=== PATIENT | female | born 1985 | race American Indian/Alaskan Native ===

== ENCOUNTER 2018-05-24 14:49 | Inpatient (IN) | payer MEDICAID, OTHER ==
[2018-05-24] MEDS ORDERED: ASPIRIN PO ONE (15:09)
[2018-05-24 15:26] LABS: Basophils % (Auto) 0.5 % (0.0-1.8); Eosinophils % (Auto) 0.5 % (0.0-4.3); Hematocrit 37.3 % (30.3-42.9); Hemoglobin 12.1 gm/dl (10.1-14.3); Lymphocytes # (Auto) 2.1 K/mm3 (1.2-5.4); Lymphocytes % (Auto) 38.2 % (13.4-35.0); Mean Corpuscular HGB Conc 33 % (30-34); Mean Corpuscular Hemoglobin 26 pg (28-32); Mean Corpuscular Volume 81 fl (79-97); Monocytes # (Auto) 0.4 K/mm3 (0.0-0.8); Monocytes % (Auto) 7.3 % (0.0-7.3); Platelet Count 263 K/mm3 (140-440); Red Cell Distribution Width 15.8 % (13.2-15.2)
[2018-05-24 15:42] LABS: BUN/Creatinine Ratio 9; Blood Urea Nitrogen 7 mg/dL (7-17); Calcium 9.2 mg/dL (8.4-10.2); Hemolysis Index 3
[2018-05-24 16:04] LABS: INR 0.96 (0.87-1.13)
[2018-05-24] MEDS ORDERED: ZOFRAN IV ONE ×2 (17:36→21:06)
[2018-05-24] MEDS ORDERED: MORPHINE IV ONE (17:36)
[2018-05-24] MEDS ORDERED: NITRO-BID 2% TP ONE (17:36)
--- NOTE | 2018-05-24 17:44 | Emergency Department Report ---
HPI - General Chief Complaint: Chest Pain Time Seen by Provider: 05/24/18 17:34 - HPI HPI: Room 31 The patient is a 32-year-old female presenting with chief complaint of chest pain. Patient states her symptoms began last night with substernal chest tightness that waxes and wanes. Patient states the tightness is associated with shortness of breath but denies nausea/vomiting or diaphoresis. Patient admits to pleurisy and dizziness. Patient states the fingers on both hands became numb as well. Patient currently gives her pain a score of 8/10. The patient states she has a history of Ianyh-Oezyeokjr-Yckpc but has never had a stress test or cardiac catheterization Location: Chest Duration: Constant since last night Quality: Tightness Severity: 8/10 Modifying factors: [see above] Context: [see above] Mode of transportation: [not driving] ED Past Medical Hx - Past Medical History Additional medical history: Rgexs-Mxpwrufnz-Piwqj - Surgical History Additional Surgical History: D&C - Family History Family history: no significant - Social History Smoking Status: Never Smoker Substance Use Type: None (denies illicit drug use) - Medications Home Medications: Home Medications Medication Instructions Recorded Confirmed Last Taken Type Promethazine Dm (Nf) [Phenergan Dm 5 ml PO Q6H PRN #60 ml 09/09/14 Unknown Rx 6.25/15 mg 5 ml] Ondansetron [Zofran Odt] 4 mg PO Q8HR #12 tab.rapdis 12/26/15 Unknown Rx ED Review of Systems ROS: Stated complaint: CHEST PAIN Other details as noted in HPI Constitutional: denies: diaphoresis Eyes: denies: eye pain ENT: denies: throat pain Respiratory: shortness of breath Cardiovascular: chest pain Endocrine: no symptoms reported Gastrointestinal: denies: nausea, vomiting Genitourinary: denies: dysuria Musculoskeletal: denies: back pain Neurological: paresthesias Physical Exam - Physical Exam Vital Signs: Vital Signs 05/24/18 15:03 Temperature 98.5 F Pulse Rate 103 H Respiratory 24 Rate Blood Pressure 139/83 O2 Sat by Pulse 100 Oximetry Physical Exam: GENERAL: The patient is well-developed well-nourished female sitting in chair appearing to be in mild discomfort. [] HEENT: Normocephalic. Atraumatic. Extraocular motions are intact. Patient has moist mucous membranes. NECK: Supple. Trachea midline CHEST/LUNGS: Clear to auscultation. There is no respiratory distress noted. HEART/CARDIOVASCULAR: Regular. There is no tachycardia. There is no gallop rub or murmur. ABDOMEN: Abdomen is soft, nontender. Patient has normal bowel sounds. There is no abdominal distention. SKIN: There is no rash. There is no edema. There is no diaphoresis. NEURO: The patient is awake, alert, and oriented. The patient is cooperative. The patient has normal speech MUSCULOSKELETAL: There is no evidence of acute injury. ED Course Vital Signs 05/24/18 15:03 Temperature 98.5 F Pulse Rate 103 H Respiratory 24 Rate Blood Pressure 139/83 O2 Sat by Pulse 100 Oximetry ED Medical Decision Making - Lab Data Result diagrams: 05/24/18 15:12 05/24/18 15:12 Laboratory Tests 05/24/18 05/24/18 05/24/18 15:12 15:12 15:39 WBC 5.5 RBC 4.60 Hgb 12.1 Hct 37.3 MCV 81 MCH 26 L MCHC 33 RDW 15.8 H Plt Count 263 Lymph % (Auto) 38.2 H [place] % (Auto) 7.3 Eos % (Auto) 0.5 Baso % (Auto) 0.5 Lymph # 2.1 [place] # 0.4 Eos # 0.0 Baso # 0.0 Seg Neutrophils % 53.5 Seg Neutrophils # 3.0 PT INR D-Dimer Sodium 135 L Potassium 3.7 Chloride 100.0 Carbon Dioxide 22 Anion Gap 17 BUN 7 Creatinine 0.8 Estimated GFR > 60 BUN/Creatinine Ratio 9 Glucose 92 Calcium 9.2 Troponin T < 0.010 HCG, Qual Negative 05/24/18 05/24/18 05/24/18 15:39 15:39 17:39 WBC RBC Hgb Hct MCV MCH MCHC RDW Plt Count Lymph % (Auto) [place] % (Auto) Eos % (Auto) Baso % (Auto) Lymph # [place] # Eos # Baso # Seg Neutrophils % Seg Neutrophils # PT 13.3 INR 0.96 D-Dimer 362.13 H Sodium Potassium Chloride Carbon Dioxide Anion Gap BUN Creatinine Estimated GFR BUN/Creatinine Ratio Glucose Calcium Troponin T < 0.010 HCG, Qual 05/24/18 20:46 WBC RBC Hgb Hct MCV MCH MCHC RDW Plt Count Lymph % (Auto) [place] % (Auto) Eos % (Auto) Baso % (Auto) Lymph # [place] # Eos # Baso # Seg Neutrophils % Seg Neutrophils # PT INR D-Dimer Sodium Potassium Chloride Carbon Dioxide Anion Gap BUN Creatinine Estimated GFR BUN/Creatinine Ratio Glucose Calcium Troponin T < 0.010 HCG, Qual - EKG Data -: EKG Interpreted by Me EKG shows normal: sinus rhythm Rate: normal - EKG Data When compared to previous EKG there are: no significant change Interpretation: unchanged when compared t (03/15/2010) - Radiology Data Radiology results: report reviewed (CT chest), image reviewed (CT chest) CT chest (read by radiologist)-no PE - Differential Diagnosis ACS, PE, pericarditis, GERD Critical care attestation.: If time is entered above; I have spent that time in minutes in the direct care of this critically ill patient, excluding procedure time. ED Disposition Clinical Impression: Chest pain Disposition: DC-09 OP ADMIT IP TO THIS HOSP Is pt being admited?: Yes Does the pt Need Aspirin: Yes Condition: Fair Instructions: Chest Pain (ED) Referrals: PRIMARY CARE, [Primary Care Provider] - 3-5 Days Time of Disposition: 21:57 (hospitalist paged (Dr. Felicitas Rivera))
[2018-05-24] MEDS ORDERED: DILAUDID IV ONE (21:16)
--- NOTE | 2018-05-24 21:32 | Cat Scan Report ---
FINAL REPORT EXAM: CT ANGIO CHEST HISTORY: chest pain, pleurisy TECHNIQUE: Following administration of IV contrast axial helical imaging was performed through the chest with sagittal and coronal reformatted images and maximum intensity projection images obtained. Comparison: None FINDINGS: There is no evidence of infiltrate, pneumothorax or pleural fluid collection. The trachea and bronchi are patent. The heart appears to be normal size. The thoracic aorta is normal caliber. There is no evidence of dissection. No filling defects are demonstrated within the pulmonary arteries to suggest the presence of pulmonary artery emboli. There is no evidence of intrathoracic adenopathy. The visualized portion the upper abdomen is unremarkable. The bony structures are unremarkable in appearance. IMPRESSION: 1. No evidence of an acute intrathoracic process. 2. No evidence of pulmonary artery emboli.
[2018-05-24] MEDS ORDERED: MORPHINE IV PRN ×2 (22:53→22:55)
[2018-05-24] MEDS ORDERED: SODIUM CHLORIDE FLUSH SYRINGE 10 ML IV PRN ×2 (22:55)
[2018-05-24] MEDS ORDERED: TYLENOL PO PRN (22:55)
[2018-05-24] MEDS ORDERED: ZOFRAN IV PRN (22:55)
--- NOTE | 2018-05-24 23:13 | History and Physical Report ---
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 Pt states that the chest pain started last night while she was in bed, pt state that the pain was noticeable but not too intense. Pt states that the pain restarted again today, it was a pressure-like pain that is constant but at time increase in intensity. Pt states that the pain was so intense that she called EMS, EMS was delayed and she called her mother who take her to the ER. Pt denied similar chest pain, she reports a h/o WPW syndrome with chest pain and palpitation, but states that this pain is different in that it is located more on the right side, reproducible with chest palpation, it is associated with SOB and it is worse with deep breath. In the ER, pt has a CT angiogram that was negative for PE, her EKG was negative, her first cardiac enzyme is negative and her chest xray is negative. Past History Past Medical History: migraines, other (WPW syndrome) Past Surgical History: No surgical history Social history: , lives with family, other (denies smoking ) Family history: no significant family history Medications and Allergies Allergies Allergy/AdvReac Type Severity Reaction Status Date / Time No Known Allergies Allergy Verified 09/09/14 18:44 Home Medications Medication Instructions Recorded Confirmed Last Taken Type Promethazine Dm (Nf) [Phenergan Dm 5 ml PO Q6H PRN #60 ml 09/09/14 Unknown Rx 6.25/15 mg 5 ml] Ondansetron [Zofran Odt] 4 mg PO Q8HR #12 tab.rapdis 12/26/15 Unknown Rx Active Meds: Active Medications Acetaminophen (Tylenol) 650 mg PO Q4H PRN PRN Reason: Pain MILD(1-3)/Fever >100.5/SPARKS Enoxaparin Sodium (Lovenox) 30 mg SUB-Q QDAY AWILDA Morphine Sulfate (Morphine) 2 mg IV Q4H PRN PRN Reason: Pain, Moderate (4-6) Morphine Sulfate (Morphine) 2 mg IV Q4H PRN PRN Reason: Pain, Moderate (4-6) Ondansetron HCl (Zofran) 4 mg IV Q4H PRN PRN Reason: Nausea And Vomiting Sodium Chloride (Sodium Chloride Flush Syringe 10 Ml) 10 ml IV BID AWILDA Sodium Chloride (Sodium Chloride Flush Syringe 10 Ml) 10 ml IV PRN PRN PRN Reason: LINE FLUSH Sodium Chloride (Sodium Chloride Flush Syringe 10 Ml) 10 ml IV PRN PRN PRN Reason: LINE FLUSH Review of Systems Cardiovascular: chest pain, shortness of breath Respiratory: shortness of breath Neurological: headaches, migraines, other (dizziness) Exam - Physical Exam Narrative exam: Pt is awake is bed, able to provide medical history - Constitutional Vitals: Temp Pulse Resp BP Pulse Ox 98.5 F 86 20 115/74 99 05/24/18 15:03 05/24/18 19:31 05/24/18 19:31 05/24/18 19:31 05/24/18 19:31 General appearance: Present: mild distress - EENT Eyes: Present: EOM intact - Neck Neck: Present: normal ROM - Respiratory Respiratory effort: normal Respiratory: bilateral: CTA - Cardiovascular Rhythm: regular - Extremities Extremities: pulses symmetrical, No edema, normal color Peripheral Pulses: within normal limits - Rectal Rectal Exam: deferred - Integumentary Integumentary: Present: warm, dry - Musculoskeletal Musculoskeletal: strength equal bilaterally - Psychiatric Psychiatric: appropriate mood/affect - Neurologic Neurologic: moves all extremities Results - Labs CBC & Chem 7: 05/25/18 00:00 05/25/18 00:00 Labs: Laboratory Last Values WBC 5.5 K/mm3 (4.5-11.0) 05/24/18 15:12 RBC 4.60 M/mm3 (3.65-5.03) 05/24/18 15:12 Hgb 12.1 gm/dl (10.1-14.3) 05/24/18 15:12 Hct 37.3 % (30.3-42.9) 05/24/18 15:12 MCV 81 fl (79-97) 05/24/18 15:12 MCH 26 pg (28-32) L 05/24/18 15:12 MCHC 33 % (30-34) 05/24/18 15:12 RDW 15.8 % (13.2-15.2) H 05/24/18 15:12 Plt Count 263 K/mm3 (140-440) 05/24/18 15:12 Lymph % (Auto) 38.2 % (13.4-35.0) H 05/24/18 15:12 [place] % (Auto) 7.3 % (0.0-7.3) 05/24/18 15:12 Eos % (Auto) 0.5 % (0.0-4.3) 05/24/18 15:12 Baso % (Auto) 0.5 % (0.0-1.8) 05/24/18 15:12 Lymph # 2.1 K/mm3 (1.2-5.4) 05/24/18 15:12 [place] # 0.4 K/mm3 (0.0-0.8) 05/24/18 15:12 Eos # 0.0 K/mm3 (0.0-0.4) 05/24/18 15:12 Baso # 0.0 K/mm3 (0.0-0.1) 05/24/18 15:12 Seg Neutrophils % 53.5 % (40.0-70.0) 05/24/18 15:12 Seg Neutrophils # 3.0 K/mm3 (1.8-7.7) 05/24/18 15:12 PT 13.3 Sec. (12.2-14.9) 05/24/18 15:39 INR 0.96 (0.87-1.13) 05/24/18 15:39 D-Dimer 362.13 ng/mlDDU (0-234) H 05/24/18 15:39 Sodium 135 mmol/L (137-145) L 05/24/18 15:12 Potassium 3.7 mmol/L (3.6-5.0) 05/24/18 15:12 Chloride 100.0 mmol/L (98-107) 05/24/18 15:12 Carbon Dioxide 22 mmol/L (22-30) 05/24/18 15:12 Anion Gap 17 mmol/L 05/24/18 15:12 BUN 7 mg/dL (7-17) 05/24/18 15:12 Creatinine 0.8 mg/dL (0.7-1.2) 05/24/18 15:12 Estimated GFR > 60 ml/min 05/24/18 15:12 BUN/Creatinine Ratio 9 % 05/24/18 15:12 Glucose 92 mg/dL (65-100) 05/24/18 15:12 Calcium 9.2 mg/dL (8.4-10.2) 05/24/18 15:12 Troponin T < 0.010 ng/mL (0.00-0.029) 05/24/18 20:46 HCG, Qual Negative (Negative) 05/24/18 15:39 Assessment and Plan Assessment and plan: 1. Atypical chest pain 2. H/o WPW syndrome 3. Costochondritis 4. Migraine headaches Plan Admit to [facility] Continue serial CE Monitor heart rate, VS DVT prophylaxis with Lovenox Morphine PRN for chest pain Muscle relaxant with Baclofen Lexicon stress test in am Further plan per hospital course Advance Directives: Yes VTE prophylaxis?: Chemical (Lovenox) Plan of care discussed with patient/family: Yes <NADINE OTOOLE - Last Filed: 05/25/18 06:07> History of Present Illness Date of admission: 05/24/18 22:56 Medications and Allergies Active Meds: Active Medications Acetaminophen (Tylenol) 650 mg PO Q4H PRN PRN Reason: Pain MILD(1-3)/Fever >100.5/SPARKS Enoxaparin Sodium (Lovenox) 40 mg SUB-Q QDAY@1000 AWILDA Morphine Sulfate (Morphine) 2 mg IV Q4H PRN PRN Reason: Pain, Moderate (4-6) Ondansetron HCl (Zofran) 4 mg IV Q4H PRN PRN Reason: Nausea And Vomiting Sodium Chloride (Sodium Chloride Flush Syringe 10 Ml) 10 ml IV BID AWILDA Sodium Chloride (Sodium Chloride Flush Syringe 10 Ml) 10 ml IV PRN PRN PRN Reason: LINE FLUSH Exam - Constitutional Vitals: Temp Pulse Resp BP Pulse Ox 98.5 F 82 17 117/54 98 05/25/18 00:50 05/25/18 00:50 05/25/18 00:50 05/25/18 00:50 05/25/18 00:50 Results - Labs CBC & Chem 7: 05/25/18 05:07 05/25/18 00:00 Labs: Laboratory Last Values WBC 7.2 K/mm3 (4.5-11.0) 10/02/18 00:00 RBC 4.15 M/mm3 (3.65-5.03) 05/25/18 00:00 Hgb 11.3 gm/dl (10.1-14.3) 05/25/18 00:00 Hct 33.7 % (30.3-42.9) 05/25/18 00:00 MCV 81 fl (79-97) 05/25/18 00:00 MCH 27 pg (28-32) L 05/25/18 00:00 MCHC 34 % (30-34) 05/25/18 00:00 RDW 15.8 % (13.2-15.2) H 05/25/18 00:00 Plt Count 252 K/mm3 (140-440) 05/25/18 00:00 Lymph % (Auto) 28.5 % (13.4-35.0) 05/25/18 00:00 [place] % (Auto) 6.8 % (0.0-7.3) 05/25/18 00:00 Eos % (Auto) 0.4 % (0.0-4.3) 05/25/18 00:00 Baso % (Auto) 0.5 % (0.0-1.8) 05/25/18 00:00 Lymph # 2.1 K/mm3 (1.2-5.4) 05/25/18 00:00 [place] # 0.5 K/mm3 (0.0-0.8) 05/25/18 00:00 Eos # 0.0 K/mm3 (0.0-0.4) 05/25/18 00:00 Baso # 0.0 K/mm3 (0.0-0.1) 05/25/18 00:00 Seg Neutrophils % 63.8 % (40.0-70.0) 05/25/18 00:00 Seg Neutrophils # 4.6 K/mm3 (1.8-7.7) 05/25/18 00:00 PT 13.3 Sec. (12.2-14.9) 05/24/18 15:39 INR 0.96 (0.87-1.13) 05/24/18 15:39 D-Dimer 362.13 ng/mlDDU (0-234) H 05/24/18 15:39 Sodium 137 mmol/L (137-145) 05/25/18 00:00 Potassium 3.8 mmol/L (3.6-5.0) 05/25/18 00:00 Chloride 101.6 mmol/L (98-107) 05/25/18 00:00 Carbon Dioxide 24 mmol/L (22-30) 05/25/18 00:00 Anion Gap 15 mmol/L 05/25/18 00:00 BUN 7 mg/dL (7-17) 05/25/18 00:00 Creatinine 0.7 mg/dL (0.7-1.2) 05/25/18 00:00 Estimated GFR > 60 ml/min 05/25/18 00:00 BUN/Creatinine Ratio 10 % 05/25/18 00:00 Glucose 94 mg/dL (65-100) 05/25/18 00:00 Calcium 8.7 mg/dL (8.4-10.2) 05/25/18 00:00 Troponin T < 0.010 ng/mL (0.00-0.029) 05/24/18 20:46 HCG, Qual Negative (Negative) 05/24/18 15:39 Assessment and Plan Assessment and plan: Patient seen and examined with Nurse Practioner. 32 year old woman with a history of WPW is being seen for chest pain on the right side. Her physical exam is benign, vital stable, EKG is in normal sinus rhythm Agree with cardiac enzymes, stress test and plan as outlined above
[2018-05-25 00:19] LABS: Basophils % (Auto) 0.5 % (0.0-1.8); Eosinophils % (Auto) 0.4 % (0.0-4.3); Hematocrit 33.7 % (30.3-42.9); Hemoglobin 11.3 gm/dl (10.1-14.3); Lymphocytes # (Auto) 2.1 K/mm3 (1.2-5.4); Lymphocytes % (Auto) 28.5 % (13.4-35.0); Mean Corpuscular HGB Conc 34 % (30-34); Mean Corpuscular Hemoglobin 27 pg (28-32); Mean Corpuscular Volume 81 fl (79-97); Monocytes # (Auto) 0.5 K/mm3 (0.0-0.8); Monocytes % (Auto) 6.8 % (0.0-7.3); Platelet Count 252 K/mm3 (140-440); Red Blood Count 4.15 M/mm3 (3.65-5.03); Red Cell Distribution Width 15.8 % (13.2-15.2)
[2018-05-25 00:33] LABS: BUN/Creatinine Ratio 10; Blood Urea Nitrogen 7 mg/dL (7-17); Calcium 8.7 mg/dL (8.4-10.2); Hemolysis Index 4
[2018-05-25 05:49] LABS: Basophils % (Auto) 0.5 % (0.0-1.8); Eosinophils % (Auto) 0.5 % (0.0-4.3); Hematocrit 35.2 % (30.3-42.9); Hemoglobin 11.3 gm/dl (10.1-14.3); Lymphocytes # (Auto) 2.3 K/mm3 (1.2-5.4); Lymphocytes % (Auto) 35.5 % (13.4-35.0); Mean Corpuscular HGB Conc 32 % (30-34); Mean Corpuscular Hemoglobin 26 pg (28-32); Mean Corpuscular Volume 82 fl (79-97); Monocytes # (Auto) 0.5 K/mm3 (0.0-0.8); Monocytes % (Auto) 7.3 % (0.0-7.3); Platelet Count 244 K/mm3 (140-440)
[2018-05-25 06:19] LABS: BUN/Creatinine Ratio 9; Blood Urea Nitrogen 7 mg/dL (7-17); Calcium 8.5 mg/dL (8.4-10.2); Hemolysis Index 17
[2018-05-25] MEDS ORDERED: LOVENOX SUB-Q SCH ×2 (10:00)
[2018-05-25] MEDS ORDERED: SODIUM CHLORIDE FLUSH SYRINGE 10 ML IV SCH (10:00)
--- NOTE | 2018-05-25 14:07 | Progress Note ---
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 Pt states that the chest pain started last night while she was in bed, pt state that the pain was noticeable but not too intense. Pt states that the pain restarted again today, it was a pressure-like pain that is constant but at time increase in intensity. Pt states that the pain was so intense that she called EMS, EMS was delayed and she called her mother who take her to the ER. Pt denied similar chest pain, she reports a h/o WPW syndrome with chest pain and palpitation, but states that this pain is different in that it is located more on the right side, reproducible with chest palpation, it is associated with SOB and it is worse with deep breath. In the ER, pt has a CT angiogram that was negative for PE, her EKG was negative, her first cardiac enzyme is negative and her chest xray is negative. Past History Past Medical History: migraines, other (WPW syndrome) 1. Atypical chest pain 2. H/o WPW syndrome 3. Costochondritis 4. Migraine headaches Plan Admit to [facility] Continue serial CE Monitor heart rate, VS DVT prophylaxis with Lovenox Morphine PRN for chest pain Muscle relaxant with Baclofen Lexicon stress test in am Further plan per hospital course Patient seen and examined with Nurse Practioner. 32 year old woman with a history of WPW is being seen for chest pain on the right side. Her physical exam is benign, vital stable, EKG is in normal sinus rhythm Agree with cardiac enzymes, stress test and plan as outlined above Hospitalist Physical - Constitutional Vitals: Temp Pulse Resp BP Pulse Ox 98.1 F 83 18 101/70 99 05/25/18 04:10 05/25/18 04:10 05/25/18 04:10 05/25/18 04:10 05/25/18 10:00 General appearance: Present: mild distress Results - Labs CBC & Chem 7: 05/25/18 05:07 05/25/18 05:07 Labs: Laboratory Last Values WBC 6.4 K/mm3 (4.5-11.0) 05/25/18 05:07 RBC 4.30 M/mm3 (3.65-5.03) 05/25/18 05:07 Hgb 11.3 gm/dl (10.1-14.3) 05/25/18 05:07 Hct 35.2 % (30.3-42.9) 05/25/18 05:07 MCV 82 fl (79-97) 05/25/18 05:07 MCH 26 pg (28-32) L 05/25/18 05:07 MCHC 32 % (30-34) 05/25/18 05:07 RDW 16.0 % (13.2-15.2) H 05/25/18 05:07 Plt Count 244 K/mm3 (140-440) 05/25/18 05:07 Lymph % (Auto) 35.5 % (13.4-35.0) H 05/25/18 05:07 [place] % (Auto) 7.3 % (0.0-7.3) 05/25/18 05:07 Eos % (Auto) 0.5 % (0.0-4.3) 05/25/18 05:07 Baso % (Auto) 0.5 % (0.0-1.8) 05/25/18 05:07 Lymph # 2.3 K/mm3 (1.2-5.4) 05/25/18 05:07 [place] # 0.5 K/mm3 (0.0-0.8) 05/25/18 05:07 Eos # 0.0 K/mm3 (0.0-0.4) 05/25/18 05:07 Baso # 0.0 K/mm3 (0.0-0.1) 05/25/18 05:07 Seg Neutrophils % 56.2 % (40.0-70.0) 05/25/18 05:07 Seg Neutrophils # 3.6 K/mm3 (1.8-7.7) 05/25/18 05:07 PT 13.3 Sec. (12.2-14.9) 05/24/18 15:39 INR 0.96 (0.87-1.13) 05/24/18 15:39 D-Dimer 362.13 ng/mlDDU (0-234) H 05/24/18 15:39 Sodium 137 mmol/L (137-145) 05/25/18 05:07 Potassium 3.7 mmol/L (3.6-5.0) 05/25/18 05:07 Chloride 100.7 mmol/L (98-107) 05/25/18 05:07 Carbon Dioxide 23 mmol/L (22-30) 05/25/18 05:07 Anion Gap 17 mmol/L 05/25/18 05:07 BUN 7 mg/dL (7-17) 05/25/18 05:07 Creatinine 0.8 mg/dL (0.7-1.2) 05/25/18 05:07 Estimated GFR > 60 ml/min 05/25/18 05:07 BUN/Creatinine Ratio 9 % 05/25/18 05:07 Glucose 87 mg/dL (65-100) 05/25/18 05:07 Calcium 8.5 mg/dL (8.4-10.2) 05/25/18 05:07 Troponin T < 0.010 ng/mL (0.00-0.029) 05/24/18 20:46 HCG, Qual Negative (Negative) 05/24/18 15:39
--- NOTE | 2018-05-25 14:52 | Discharge Summary ---
Providers - Providers Date of Admission: 05/24/18 22:56 Attending physician: SKINNY SALCIDO MD 05/24/18 Consult to Cardiac Rehabilitation [CONS] Routine Reason For Exam: Phase I 05/25/18 14:11 Consult to Physician [CONS] Routine Comment: Consulting Provider: EV QUEEN Physician Instructions: Reason For Exam: palpiations, hx of WPW Primary care physician: COMMISSIONING SPECIALIST Hospitalization Condition: Fair Hospital course: 32-year-old previous history of WPW syndrome. The patient had refused ablation in the past. States that she's not interested in ablation at this time. She presented with chest pain 2 days. ACS was ruled out by negative troponins, she went on to have a stress test which was negative, she also had CT angiographic chest was negative for pulmonary embolism. She was told that chest pain was mostly due to costochondritis, and advised to take Tylenol or Motrin as needed. Telemetry reports was reviewed, the patient did not have any aberrant rhythm throughout her hospital stay Discharge diagnoses Chest pain due to costochondritis History of WPW syndrome Migraine headaches Disposition: DC- TO HOME OR SELFCARE Time spent for discharge: 33 minutes Core Measure Documentation - Palliative Care Palliative Care/ Comfort Measures: Not Applicable - Core Measures Any of the following diagnoses?: none Exam - Constitutional Vitals: Temp Pulse Resp BP Pulse Ox 98.1 F 106 H 18 101/70 99 05/25/18 04:10 05/25/18 08:00 05/25/18 04:10 05/25/18 04:10 05/25/18 10:00 General appearance: Present: no acute distress, well-nourished - EENT Eyes: Present: PERRL ENT: hearing intact, clear oral mucosa - Neck Neck: Present: supple, normal ROM - Respiratory Respiratory effort: normal Respiratory: bilateral: CTA - Cardiovascular Heart Sounds: Present: S1 & S2. Absent: rub, click - Extremities Extremities: pulses symmetrical, No edema Peripheral Pulses: within normal limits - Abdominal General gastrointestinal: Present: soft, non-tender, non-distended, normal bowel sounds Female genitourinary: Present: normal - Integumentary Integumentary: Present: clear, warm, dry - Musculoskeletal Musculoskeletal: gait normal, strength equal bilaterally - Psychiatric Psychiatric: appropriate mood/affect, intact judgment & insight - Neurologic Neurologic: CNII-XII intact, moves all extremities Plan Follow up with: PRIMARY CARE, [Primary Care Provider] - 3-5 Days
[2018-05-25 16:48] VITALS: BP 94/52
== END 2018-05-25 16:30 | disposition home or self-care (01) | DRG 206 ==
LOC: ED 14:49 → 4A 22:56
PROVIDERS: ADMIT Internal Medicine; ATTEND Internal Medicine
DX: M94.0 Chondrocostal junction syndrome [Tietze] (principal); I45.6 Pre-excitation syndrome; G43.909 Migraine, unspecified, not intractable, without status migrainosus; R07.89 Other chest pain
CPT/HCPCS: 36415; 71275; 78452; 80048; 84484; 84703; 85025; 85379; 85610; 93005; 93010; 93017; 96374; 96375; A9502; J1170; J1650; J2270; J2405; Q9967